=== PATIENT | male | born 1950 | race Caucasian/White ===

== ENCOUNTER 2020-11-21 16:53 | Emergency (ER) | payer MEDICARE, SELFPAY ==
[2020-11-21] VITALS (7 sets, daily range): BP systolic 125–135; BP diastolic 63–105; PULSE 73–84; RESP 15–21; TEMP 36.7–36.8; O2SAT 91–95; BMI 34.0
--- NOTE | 2020-11-21 17:02 | CT_ITS ---
PROCEDURE INFORMATION: Exam: CTA Chest With Contrast Exam date and time: 11/21/2020 5:02 PM Age: 70 years old Clinical indication: Injury or trauma; Additional info: Flipped mower TECHNIQUE: Imaging protocol: Computed tomographic angiography of the chest with contrast. 3D rendering (Not supervised by radiologist): MIP and/or 3D reconstructed images were created by the technologist. Radiation optimization: All CT scans at this facility use at least one of these dose optimization techniques: automated exposure control; mA and/or kV adjustment per patient size (includes targeted exams where dose is matched to clinical indication); or iterative reconstruction. Contrast material: ISOVUE; Contrast volume: 120 ml; Contrast route: INTRAVENOUS (IV); COMPARISON: CR XR CHEST PORTABLE 11/21/2020 5:09 PM FINDINGS: Pulmonary arteries: The pulmonary arteries are normal in caliber. No pulmonary emboli to the segmental level. Aorta: No thoracic aortic aneurysm. No evidence of aortic dissection. Lungs: No focal consolidation. There is a pulmonary nodule in the right middle lobe that measures 8 mm in average diameter. Linear opacities scattered throughout both lungs likely represent subsegmental atelectasis and/or scarring. There is a calcified granuloma in the left lower lobe. Pleural spaces: No pneumothorax. There is a trace left pleural effusion. No right pleural effusion. Heart: No cardiomegaly. No pericardial effusion. Lymph nodes: No mediastinal or hilar lymphadenopathy. Calcified left hilar lymph node. Bones/joints: Note is made acute fractures of the visualized ribs: Nondisplaced fractures of the posterior right 2nd and 6th ribs; nondisplaced fractures of the anterior right 6th through 8th ribs. There are displaced fractures of the posterior left 8th, 9th and 11th ribs and a nondisplaced fracture of the medial left 12th rib. Note is made of a vertical fracture through a right lateral osteophyte of the T11 vertebral body. The T12 vertebral body is not included on reformatted images however irregularity of the superior endplate of the T12 vertebral body on axial images suggests a compression fracture of the superior endplate. Partially imaged fracture of the right transverse process of L1. There is a nondisplaced fracture of the proximal body of the sternum with adjacent soft tissue swelling as on series 2, image 99. Soft tissues: Mild soft tissue swelling posterior to sternal fracture. IMPRESSION: 1. No evidence of pulmonary embolism or aortic dissection. 2. Acute fractures of bilateral ribs: Nondisplaced fractures of the posterior right 2nd and 6th ribs; nondisplaced fractures of the anterior right 6th through 8th ribs; displaced fractures of the posterior left 8th, 9th and 11th ribs and a nondisplaced fracture of the medial left 12th rib. 3. Compression fracture of the superior endplate of T12, suboptimally evaluated on this exam; see CT of the thoracic spine. 4. Vertical fracture through a right lateral osteophyte of the T11 vertebral body. 5. Nondisplaced fracture of the body of the sternum. 6. Trace left pleural effusion. 7. 8 mm pulmonary nodule in the right middle lobe. For patients at low risk (minimal or absent history of smoking and of other known risk factors), recommend CT Chest at 6-12 months, then consider CT Chest at 18-24 months. For patients at high risk (history of smoking or of other known risk factors), recommend CT Chest at 6-12 months, then CT Chest at 18-24 months. (Reference: Rajesh) REFERENCES: Rajesh Cook et al. Guidelines for Management of Incidental Pulmonary Nodules Detected on CT Images: From the [employer]
--- NOTE | 2020-11-21 17:02 | CT_ITS ---
PROCEDURE INFORMATION: Exam: CT Abdomen And Pelvis With Contrast Exam date and time: 11/21/2020 5:02 PM Age: 70 years old Clinical indication: Injury or trauma; Additional info: Flipped mower TECHNIQUE: Imaging protocol: Computed tomography of the abdomen and pelvis with contrast. Radiation optimization: All CT scans at this facility use at least one of these dose optimization techniques: automated exposure control; mA and/or kV adjustment per patient size (includes targeted exams where dose is matched to clinical indication); or iterative reconstruction. Contrast material: ISOVUE; Contrast volume: 70 ml; Contrast route: IV; COMPARISON: CR XR PELVIS 1-2V 11/21/2020 5:09 PM FINDINGS: Limitations: The entirety of the inferior pubic rami have not been imaged. Liver: No evidence of focal liver lesion on this single phase exam. Gallbladder and bile ducts: No intra- or extrahepatic biliary ductal dilation. No radiopaque gallstones. Pancreas: No evidence of focal lesion or ductal dilatation. Spleen: No splenomegaly. Splenic densities likely represent calcified granulomas. Adrenal glands: No adrenal nodule. Kidneys and ureters: No renal calculi. Renal vascular calcifications are present in the region of the left renal hilum. Parapelvic cysts versus left hydronephrosis. Right hydronephrosis. There is a 1.1 cm cyst in the upper pole of the left kidney as well as additional subcentimeter hypodense lesions which are too small to accurately characterize. Stomach and bowel: No distention or wall thickening. Appendix: The appendix is normal. Intraperitoneal space: No free air or fluid. No evidence of focal fluid collection. Vasculature: Note is made of focal ectasia of the distal abdominal aorta which measures 2.2 cm in diameter. Lymph nodes: No lymphadenopathy. Urinary bladder: Unremarkable as visualized. Reproductive: The prostate gland is partially imaged in suboptimally evaluated. Bones/joints: Read demonstrated compression fractures of T12 and L2 and of an osteophyte of the right aspect of T11. Redemonstrated inferior thoracic rib fractures as well as transverse process fractures. No new fractures identified however the entirety of the inferior pubic rami have not been imaged. Soft tissues: Unremarkable. IMPRESSION: 1. Redemonstrated rib fractures and compression fractures of T12 and L2 and of an osteophyte of the right aspect of T11 as well as transverse process fractures of the lumbar spine. Please see the report of the lumbar spine and chest CT for further details. No new fractures are identified however the entirety of the inferior pubic rami have not been imaged. 2. Parapelvic cysts versus left hydronephrosis. These entities can be differentiated with excretory phase imaging as clinically indicated. COMMENTS: Consistent with the [employer]'s Incidental Findings Committee white paper (J Am Diony Radiol 2018): Any incidental renal lesion less than 1 cm or classified as too small to characterize, or any incidental cystic renal lesion characterized as simple-appearing, is likely benign. No follow-up imaging is recommended for these lesions per consensus recommendations based on imaging criteria.
--- NOTE | 2020-11-21 17:02 | CT_ITS ---
PROCEDURE INFORMATION: Exam: CT Maxillofacial Without Contrast Exam date and time: 11/21/2020 5:02 PM Age: 70 years old Clinical indication: Injury or trauma; Additional info: Flipped mower TECHNIQUE: Imaging protocol: Computed tomography images of the face without contrast. Radiation optimization: All CT scans at this facility use at least one of these dose optimization techniques: automated exposure control; mA and/or kV adjustment per patient size (includes targeted exams where dose is matched to clinical indication); or iterative reconstruction. COMPARISON: CT HEAD/BRAIN WO CON 11/21/2020 6:03 PM FINDINGS: Orbital cavity: Intra and extraconal fat are clean. Globes are normal. The left inferior rectus appears to remain in good position, but clinical correlation for entrapment is recommended. Bones/joints: There is a left comminuted orbital floor fracture with up to 10 mm of depression. There may be a hairline fracture in the lateral wall of the left maxillary sinus. No other fractures are identified. Paranasal sinuses: An air-fluid level in left maxillary sinus is present compatible with blood products. Soft tissues: Mild preseptal periorbital edema and mild pre maxillary edema compatible with soft tissue trauma. IMPRESSION: Left orbital floor fracture with about 10 mm of inferior depression
--- NOTE | 2020-11-21 17:02 | CT_ITS ---
PROCEDURE INFORMATION: Exam: CT Head Without Contrast Exam date and time: 11/21/2020 5:02 PM Age: 70 years old Clinical indication: Injury or trauma; Additional info: Flipped mower TECHNIQUE: Imaging protocol: Computed tomography of the head without contrast. Radiation optimization: All CT scans at this facility use at least one of these dose optimization techniques: automated exposure control; mA and/or kV adjustment per patient size (includes targeted exams where dose is matched to clinical indication); or iterative reconstruction. COMPARISON: [facility] CT HEAD W/O CONTRAST 01/11/2017 11:18 AM FINDINGS: Brain: Normal. No hemorrhage. Unremarkable white matter. No mass effect. Cerebral ventricles: No ventriculomegaly. Paranasal sinuses: Please see concurrent CT face for findings related to facial fractures. The Mastoid air cells: Visualized mastoid air cells are well aerated. Bones/joints: Please see concurrent CT face for findings related to facial fractures. Soft tissues: Unremarkable. Other findings: No reconstructions. IMPRESSION: No acute intracranial pathology
--- NOTE | 2020-11-21 17:02 | CT_ITS ---
PROCEDURE INFORMATION: Exam: CT Cervical Spine Without Contrast Exam date and time: 11/21/2020 5:02 PM Age: 70 years old Clinical indication: Injury or trauma; Additional info: Flipped mower TECHNIQUE: Imaging protocol: Computed tomography images of the cervical spine without contrast. Radiation optimization: All CT scans at this facility use at least one of these dose optimization techniques: automated exposure control; mA and/or kV adjustment per patient size (includes targeted exams where dose is matched to clinical indication); or iterative reconstruction. COMPARISON: CT HEAD/BRAIN WO CON 11/21/2020 6:03 PM FINDINGS: Bones/joints: No acute fracture. Normal alignment. Discs/Spinal canal/Neural foramina: Mild degenerative changes. No severe spinal canal stenosis. No significant neural foraminal narrowing. Lungs: Lung apices are normal. Soft tissues: Please see concurrent CT face for facial fracture findings. IMPRESSION: No evidence of osseous spinal injury
--- NOTE | 2020-11-21 17:07 | XR_ITS ---
PROCEDURE INFORMATION: Exam: XR Chest Exam date and time: 11/21/2020 5:07 PM Age: 70 years old Clinical indication: Injury or trauma; Other: Mower accident; Blunt trauma (contusions or hematomas); Additional info: Flipped mower TECHNIQUE: Imaging protocol: XR of the chest. Views: 1 view. COMPARISON: CR CXR1 CHEST-PORTABLE 01/11/2017 11:31 AM FINDINGS: Lungs: Some hypoventilatory exam. Pleural spaces: Unremarkable. No pleural effusion. No pneumothorax. Heart/Mediastinum: Unremarkable. No cardiomegaly. Bones/joints: Unremarkable. IMPRESSION: Chest radiograph reveals no acute trauma. For persistent clinical concern, CT is offered.
--- NOTE | 2020-11-21 17:08 | CT_ITS ---
PROCEDURE INFORMATION: Exam: CT Lumbar Spine Without Contrast Exam date and time: 11/21/2020 5:08 PM Age: 70 years old Clinical indication: Injury or trauma; Additional info: Flipped mower TECHNIQUE: Imaging protocol: Computed tomography images of the lumbar spine without contrast. Radiation optimization: All CT scans at this facility use at least one of these dose optimization techniques: automated exposure control; mA and/or kV adjustment per patient size (includes targeted exams where dose is matched to clinical indication); or iterative reconstruction. COMPARISON: CT THORACIC SPINE WO CON 11/21/2020 6:11 PM FINDINGS: Vertebrae: There are acute compression fractures of the superior endplates of T12 and L2 with less than 10% loss of height. There is sclerosis and lucency of the left aspect of the superior endplate of L3 which likely related to endplate degenerative changes. Partially imaged displaced fracture of the left 11th rib. There is a nondisplaced fracture of the medial left 12th rib. There are moderately displaced fractures of the right transverse processes of L1 and L2 and a questionable nondisplaced fracture of the tip of the right transverse process of L3. There is a moderately displaced fracture of the left transverse process of L2. Discs/Spinal canal/Neural foramina: There are multilevel degenerative changes of the lumbar spine characterized by intervertebral disc space narrowing, endplate degenerative changes and facet arthropathy. There is moderate to severe spinal canal narrowing at L3-L4 secondary to a disc bulge and ligamentum flavum hypertrophy. There is severe spinal canal and moderate bilateral foraminal narrowing at L4-L5 secondary to a disc bulge however this level is slightly suboptimally evaluated secondary to streak artifact. Intraperitoneal space: Please see abdomen/pelvis report regarding intra-abdominal findings. Soft tissues: Unremarkable. IMPRESSION: 1. Acute compression fractures of the superior endplates of T12 and L2 with less than 10% loss of height. 2. Moderately displaced fractures of the right transverse processes of L1 and L2 and questionable nondisplaced fracture of the tip of the right transverse process of L3. Moderately displaced fracture of the left transverse process of L2. 3. Partially imaged displaced fracture of the left 11th rib and nondisplaced fracture of the medial left 12th rib.
--- NOTE | 2020-11-21 17:08 | CT_ITS ---
PROCEDURE INFORMATION: Exam: CT Thoracic Spine Without Contrast Exam date and time: 11/21/2020 5:08 PM Age: 70 years old Clinical indication: Injury or trauma; Additional info: Flipped mower TECHNIQUE: Imaging protocol: Computed tomography images of the thoracic spine without contrast. Radiation optimization: All CT scans at this facility use at least one of these dose optimization techniques: automated exposure control; mA and/or kV adjustment per patient size (includes targeted exams where dose is matched to clinical indication); or iterative reconstruction. COMPARISON: CT CERVICAL SPINE WO CON 11/21/2020 6:06 PM FINDINGS: Vertebrae: There is an acute compression fracture of the superior endplate of T12 with less than 10% loss of height. There is also a the vertical fracture through an osteophyte of the right aspect of the T11 vertebral body best seen on series 601, image 34. Note is again made of nondisplaced fractures of the posterior right 2nd and 6th ribs as well as displaced fractures of the posterior 8th, 9th, and 11th ribs as well as a nondisplaced fracture of the medial 12 rib. There is a partially imaged fracture of the right transverse process of L1. Discs/Spinal canal/Neural foramina: No significant disc protrusion. No severe spinal canal stenosis. No significant neural foraminal narrowing. Soft tissues: Unremarkable. IMPRESSION: 1. Acute compression fracture of the superior endplate of T12 with less than 10% loss of height. 2. Vertical fracture through an osteophyte of the right aspect of the T11 vertebral body. 3. Note again made of nondisplaced fractures of the posterior right 2nd and 6th ribs as well as displaced fractures of the posterior 8th, 9th and 11th rib as well as a nondisplaced fracture of the medial 12th rib.
--- NOTE | 2020-11-21 17:08 | XR_ITS ---
PROCEDURE INFORMATION: Exam: XR Pelvis Exam date and time: 11/21/2020 5:08 PM Age: 70 years old Clinical indication: Injury or trauma; Other: Mower accident; Blunt trauma (contusions or hematomas); Bilateral; Hip; Additional info: Flipped mower TECHNIQUE: Imaging protocol: XR pelvis. Views: 1 or 2 view. COMPARISON: No relevant prior studies available. FINDINGS: Bones/joints: Unremarkable. No acute fracture. Soft tissues: Unremarkable. IMPRESSION: No acute findings. For persistent clinical concern, CT is offered.
--- NOTE | 2020-11-21 17:10 | [facility].EDGENADL ---
ED Disposition Clinical Impression: Multiple transverse process fractures Orbit fracture Qualifiers: Encounter type: initial encounter Fracture type: closed Qualified Code(s): S02.85XA - Fracture of orbit, unspecified, initial encounter for closed fracture Sternal fracture Qualifiers: Encounter type: initial encounter Sternal location: body of sternum Fracture type: closed Qualified Code(s): S22.22XA - Fracture of body of sternum, initial encounter for closed fracture Multiple rib fractures Qualifiers: Encounter type: initial encounter Fracture type: closed Laterality: bilateral Qualified Code(s): S22.43XA - Multiple fractures of ribs, bilateral, initial encounter for closed fracture Thoracic compression fracture Qualifiers: Encounter type: initial encounter Thoracic vertebra fracture level: T12 Qualified Code(s): S22.080A - Wedge compression fracture of T11-T12 vertebra, initial encounter for closed fracture Lumbar compression fracture Qualifiers: Encounter type: initial encounter Lumbar vertebra fracture level: L2 Qualified Code(s): S32.020A - Wedge compression fracture of second lumbar vertebra, initial encounter for closed fracture Disposition: Xfer Short-Term Hosp Condition on Discharge: Serious Referrals: Provider,Referral, MD [Primary Care Provider] - - Critical Care Critical Care Time: No Attestation: On , the high probability of a clinically significant, sudden or life threatening deterioration of the following system(s) required my full and direct attention, intervention and personal management. The time I documented below is in addition to time spent performing reported procedures but includes the following listed in this critical care notation. Medical Decision Making - Edward Inquiry Pt receiving controlled substance: Yes Edward was queried for this patient: No Risks and benefits of using a controlled substance: were not discussed with pt by me Vital Signs: 11/21/20 16:53 Temperature 98.3 F Temperature Source Oral Pulse Rate [Right Radial] 74 Respiratory Rate 18 Blood Pressure [Right Arm] 125/105 H Blood Pressure Mean [Right Arm] 111 Blood Pressure Source [Right Arm] Automatic Cuff Blood Pressure Position [Right Arm] Sitting 02 Sat by Pulse Oximetry 94 L Oxygen Delivery Method Nasal Cannula Oxygen Flow Rate (LPM) 2 - Lab Data Lab Results 11/21/20 17:10: WBC 12.1 H, RBC 4.88, Hgb 14.3, Hct 44.7, MCV 91.6, MCH 29.2, MCHC 31.9, RDW 14.3, Plt Count 273, MPV 8.4, Neut % (Auto) 79.7, Lymph % (Auto) 15.9, Gila % (Auto) 2.2, Eos % (Auto) 1.8, Baso % (Auto) 0.4, Neut # (Auto) 9.6 H, Lymph # (Auto) 1.9, Gila # (Auto) 0.3, Eos # (Auto) 0.2, Baso # (Auto) 0.1 11/21/20 17:10: Sodium 141, Potassium 4.6, Chloride 106, Carbon Dioxide 24, Anion Gap 15.6 H, BUN 31 H, Creatinine 1.30 H, Estimated Creat Clear 76, Estimated GFR 54 L, Est GFR ( Amer) 66, Glucose 246 H, Calcium 8.8, Total Bilirubin 0.6, AST 40, ALT 25, Alkaline Phosphatase 113, Total Protein 7.6, Albumin 4.2, Globulin 3.4 H, Albumin/Globulin Ratio 1.2 Result diagrams: 11/21/20 17:10 11/21/20 17:10 Orders (Tests/Meds): ED MEDICATIONS Discontinued Medications Generic Name Dose Route Start Last Admin Trade Name Freq PRN Reason Stop Dose Admin Hydromorphone HCl 1 mg 11/21/20 20:55 Hydromorphone 2mg/Ml Syringe IV 11/21/20 20:56 ONCE ONE Sodium Chloride 1,000 mls @ 999 mls/hr 11/21/20 17:04 11/21/20 17:00 Sod Chlor 0.9% 1000ml Bag IV 11/21/20 18:04 999 mls/hr .Q1H1M ONE Administration Iopamidol 100 ml 11/21/20 18:08 11/21/20 18:10 Iopamidol-370 (76%);100ml Bottle IV 11/21/20 18:09 100 ml ONCE ONE Administration Morphine Sulfate 4 mg 11/21/20 17:01 11/21/20 17:15 Morphine 4mg/Ml Syringe IV 11/21/20 17:02 4 mg ONCE ONE Administration Ondansetron HCl 4 mg 11/21/20 17:01 11/21/20 17:05 Ondansetron 4mg/2ml Vial IV 11/21/20 17:02 4 mg ONCE ONE Administration Sodium Chlor
[2020-11-21 17:34] LABS: Chloride 106 mmol/L (98-107); Potassium 4.6 mmoL/L (3.5-5.1); Sodium 141 mmol/L (136-145)
[2020-11-21 17:36] LABS: Blood Urea Nitrogen 31 mg/dl (9-20); Creatinine Clearance Estimated 76 mL/min (50-200); Estimated Glomerular Filt Rate 54 ml/min (>60); GFR (African American) 66 ML/MIN (>60)
[2020-11-21 17:37] LABS: Alanine Aminotransferase 25 U/L (12-78); Albumin Level 4.2 g/dl (3.5-5.0); Albumin/Globulin Ratio 1.2 (1.1-1.8); Alkaline Phosphatase 113 U/L (38-126); Anion Gap 15.6 mEq/L (5-15); Aspartate Amino Transferase 40 U/L (17-59); Basophils # 0.1 K/mm3 (0-0.2); Basophils % 0.4 % (0.1-2.0); Bilirubin,Total 0.6 mg/dl (0.2-1.3); Calcium 8.8 mg/dl (8.4-10.2); Carbon Dioxide 24 mmol/L (22.0-30.0); Eosinophils # 0.2 K/mm3 (0.0-0.4); Eosinophils % 1.8 % (0.1-12.0); Globulin 3.4 g/dL (1.3-3.2); Glucose 246 mg/dl (74-100); Hematocrit 44.7 % (42.0-52.0); Hemoglobin 14.3 g/dL (14.1-18.0); Lymphocytes # 1.9 K/mm3 (0.7-4.5); Lymphocytes % 15.9 % (10-50); Mean Corpuscular HGB Conc 31.9 g/dL (31.8-35.4); Mean Corpuscular Hemoglobin 29.2 pg (27.0-31.2); Mean Corpuscular Volume 91.6 fl (80-94); Mean Platelet Volume 8.4 fl (7.4-10.4); Monocytes # 0.3 K/mm3 (0.1-1.0); Monocytes % 2.2 % (1.7-9.3); Neutrophils # 9.6 K/mm3 (1.8-7.8); Neutrophils % 79.7 % (37.0-80.0); Platelet Count 273 K/mm3 (142-424); Red Blood Count 4.88 M/mm3 (4.60-6.20); Red Cell Distribution Width 14.3 % (11.5-17.5); Total Protein,Serum 7.6 g/dl (6.3-8.2); White Blood Count 12.1 K/mm3 (4.8-10.8)
--- NOTE | 2020-11-21 20:32 | ECG_ITS ---
APPROVED REPORT Exam: Resting ECG HR:75 bpm ECG Measurements Heart Rate 75 AXES ME 172 P 67 QRSd 130 QRS -54 QT 402 T 36 QTc 448 Conclusion Normal sinus rhythm Left axis deviation Right bundle branch block Inferior infarct, age undetermined Abnormal ECG Electronically signed by : Wade Ulloa MD 11/23/2020 12:09:38
== END 2020-11-21 21:26 | disposition short-term general hospital (02) ==
PROVIDERS: Emergency Provider Emergency Medicine
DX: S02.85XA Fracture of orbit, unspecified, initial encounter for closed fracture (principal); S22.22XA Fracture of body of sternum, initial encounter for closed fracture; S22.43XA Multiple fractures of ribs, bilateral, initial encounter for closed fracture; S22.080A Wedge compression fracture of T11-T12 vertebra, initial encounter for closed fracture; S32.020A Wedge compression fracture of second lumbar vertebra, initial encounter for closed fracture; W30.89XA Contact with other specified agricultural machinery, initial encounter; Y92.017 Garden or yard in single-family (private) house as the place of occurrence of the external cause
CPT/HCPCS: 70450; 70486; 71045; 71275; 72125; 72128; 72131; 72170; 74177; 80053; 85025; 93005; 96365; 96367; 96375; 99284; J2405; Q9967

== ENCOUNTER 2024-02-05 21:43 | Emergency (ER) | payer MEDICARE, SELFPAY ==
[2024-02-05 21:44] VITALS: BP 132/62; PULSE 67; RESP 18; TEMP 36.7; O2SAT 97; BMI 32.5
[2024-02-05 22:45] LABS: Influenza A, PCR Not Detected (NotDetected); Influenza B, PCR Not Detected (NotDetected)
--- NOTE | 2024-02-05 23:11 | PC.NURSE ---
Called Rad about chest xray.
[2024-02-05 23:16] LABS: Coronavirus 19, PCR Detected (NotDetected)
--- NOTE | 2024-02-05 23:34 | [facility].EDGENADL ---
Discharge Plan Disposition Patient Disposition: Home, Self-Care Prescriptions Prescriptions: New levofloxacin 750 mg tablet 750 mg PO DAILY 6 Days Qty: 6 0RF No Action pantoprazole 40 MG tablet,delayed release (DR/EC) 40 mg PO DAILY metformin 1,000 MG tablet 1,000 mg PO BID gabapentin 300 MG capsule 300 mg PO BID losartan 100 MG tablet 100 mg PO DAILYDM rosuvastatin 20 MG tablet 20 mg PO DAILY levothyroxine 50 MCG capsule 50 mcg PO DAILY vortioxetine 10 MG tablet 10 mg PO DAILY empagliflozin 25 MG tablet 25 mg PO DAILY semaglutide 14 MG tablet 14 mg PO DAILY Referrals Follow up/Referrals: Ton Michael MD [Primary Care Provider] - See instructions Activity Restrictions/Add. Instructions Additional Instructions/Restrictions: Please take antibiotics as prescribed for pneumonia. Please follow-up with your primary care provider. Please return to the emergency department if you develop any new or worsening symptoms or become concerned for your health. Clinical Impressions Clinical Impression: Pneumonia Qualifiers: Laterality: left Lung location: lower lobe of lung Print Language Print Language: Romanian Discharge ED Provider: Munir Hernández General Adult HPI General Chief complaint: Upper Respiratory Infection Stated complaint: beto, SOA, cough Time Seen by Provider: 02/05/24 23:33 Mode of Arrival: Ambulatory Source of Information: Patient Limitations: No Limitations Description of Symptoms (Recalled from ER Triage Doc. by RN): pt to the ED with cough, congestion and drainage. pt denies any fever, chest pain or SOB. History of Present Illness HPI narrative: 73-year-old male with history of diabetes presents for cough, congestion. He reports that he has had nasal congestion and intermittently productive cough for the last couple of weeks. Denies fever at home. Reports that he feels a little bit rundown but is not having any trouble breathing. Denies any history of lung problems. Reports normal p.o. intake. Related Data Home Medications ?Medication ?Instructions ?Recorded ?Confirmed empagliflozin 25 mg tablet 25 mg PO DAILY daily 11/21/20 11/21/20 gabapentin 300 mg capsule 300 mg PO BID peripheal neuropathy 11/21/20 11/21/20 levothyroxine 50 mcg capsule 50 mcg PO DAILY thyroid 11/21/20 11/21/20 losartan 100 mg tablet 100 mg PO DAILYDM htn 11/21/20 11/21/20 metformin 1,000 mg tablet 1,000 mg PO BID Diabetes 11/21/20 11/21/20 pantoprazole 40 mg tablet,delayed 40 mg PO DAILY GERD 11/21/20 11/21/20 release rosuvastatin 20 mg tablet 20 mg PO DAILY Cholesterol 11/21/20 11/21/20 semaglutide 14 mg tablet 14 mg PO DAILY Depression 11/21/20 11/21/20 vortioxetine 10 mg tablet 10 mg PO DAILY Depression 11/21/20 11/21/20 Previous Rx's ?Medication ?Instructions ?Recorded levofloxacin 750 mg tablet 750 mg PO DAILY 6 days #6 tabs 02/06/24 Allergies Allergy/AdvReac Type Severity Reaction Status Date / Time Penicillins [PENICILLINS] Allergy Unknown Verified 11/21/20 17:15 [facility] Disclaimer: The information contained in this section may have been updated after the patient was seen, as this information can be updated by other users. Social History Smoking Status: Never smoker alcohol intake: never current occupational status: retired Travel in the last 8 weeks: None Other Medical History Have you received the Flu Vaccine for this season: No Have you received the Pneumonia Vaccine: No ROS Obtained: Yes All systems reviewed & no additional complaints except as documented Physical Exam General General appearance: alert and in no apparent distress Head Head exam: atraumatic and normocephalic Eye Eye exam: Present normal appearance, PERRL and EOMI ENT ENT exam: Present normal oropharynx and normal external ear exam Neck Neck exam: Present normal inspection and full ROM Chest Chest inspection: Present normal inspection and symmetric chest wall rise; Absent tenderness Respiratory Respiratory exam: Present other (Rhonchi worse on the right upper); Absent respiratory distress Cardiovascular Cardiovascular exam: Present regular rate and normal rhythm Abdominal Exam Abdominal exam: Present soft; Absent distention, tenderness or guarding Extremities Exam Extremities exam: Present normal inspection; Absent edema or joint swelling Back Exam Back exam: Present normal inspection; Absent tenderness Neurological Exam Neurological exam: Present alert and oriented X3; Absent motor sensory deficit Psychiatric Psychiatric exam: Present normal affect and normal mood Skin Skin exam: Present warm, dry and normal color Lymphatic Lymphatic Findings: no adenopathy Medical Decision Making Medical Records Medical records reviewed: Yes I reviewed the patient's medical records. Screening: Per USPSTF and CDC recommendations, given the prevalence of disease in our region, it is our hospital?s policy to screen for HIV and viral Hepatitis for all patients aged 18 and over and those with ongoing risk factors. Edward Inquiry Pt receiving controlled substance: No Edward was queried for this patient: No Vital Signs: 02/05/24 21:44 02/06/24 00:38 Temperature 98.1 F 97.9 F Temperature Source Oral Pulse Rate 67 Pulse Rate [Left Radial] 67 Respiratory Rate 18 18 Blood Pressure 132/62 Blood Pressure [Right Arm] 132/62 Blood Pressure Mean [Right Arm] 85 Blood Pressure Source [Right Arm] Manual Cuff/ Auscultation Blood Pressure Position [Right Arm] Sitting 02 Sat by Pulse Oximetry 97 Oxygen Delivery Method Room Air Room Air Lab Data Lab results reviewed: Yes I reviewed the patient's lab results. Lab Results 02/05/24 10:40: SARS-CoV-2 (PCR) Detected A, Influenza A Untype (PCR) Not detected, Influenza Type B (PCR) Not detected Orders (Tests/Meds): ED MEDICATIONS Discontinued Medications Generic Name Dose Route Start Last Admin Trade Name Freq PRN Reason Stop Dose Admin Levofloxacin 750 mg 02/06/24 00:29 02/06/24 00:37 Levofloxacin 750 Mg Tablet PO 02/06/24 00:30 750 mg ONCE ONE Administration ORDERS Category Date Time Status XR chest 2V Stat Exams 02/06/24 00:17 Completed Rapid PCR Covid and Flu A/B Stat Lab 02/05/24 10:40 Completed Medical Decision Narrative: 73-year-old male with history of diabetes presents for persistent cough and nasal congestion. History was obtained via interactive discussion with patient, chart review. On arrival, patient is [afebrile, hemodynamically stable, satting appropriately, alert, oriented x4, GCS 15], moving all extremities spontaneously. Full physical exam performed and significant for rhonchi worse in the right upper lung field. Differential includes but is not limited to COVID, flu, viral/bacterial pneumonia. Workup initiated including COVID flu swab, chest x-ray two-view. On re-evaluation, patient [remains afebrile, HD stable.] Laboratory workup independently interpreted by me and significant for positive COVID swab. Imaging independently interpreted by me and significant for finding concerning for left lower lobe pneumonia.. See radiology read for full review of final results. Blood work and admission for community-acquired pneumonia was considered, but deemed unnecessary due to history, vital signs, patient generally well-appearing.. Given patient history, exam and workup, patient's presentation most likely represents COVID with associated pneumonia. We will initiate patient on Levaquin for treatment of community acquired pneumonia given penicillin allergy. Interactive discussion was had with patient regarding his presentation and workup. He was given strict return precautions. Procedures Risk/Benefits of Procedure(s) Were Explained: Yes Critical Care Critical Care Time Critical Care Time: No
--- NOTE | 2024-02-06 00:17 | XR_ITS ---
PROCEDURE INFORMATION: Exam: XR Chest Exam date and time: 02/06/2024 12:08 AM Age: 73 years old Clinical indication: Cough TECHNIQUE: Imaging protocol: Radiologic exam of the chest. Views: 2 views. COMPARISON: CT ANGIO CHEST 11/21/2020 6:21 PM FINDINGS: Lungs: Peribronchial interstitial infiltrates are present bilaterally. No airspace disease. Pleural spaces: No pleural effusions. Heart/Mediastinum: Unremarkable. No cardiomegaly. Bones/joints: Osseous structures are appropriate for age. IMPRESSION: Airways disease or infectious bronchitis versus chronic lung disease. No acute airspace pneumonia.
[2024-02-06] MEDS: levoFLOXacin 750 MG TABLET PO (00:37)
[2024-02-06 00:38] VITALS: BP 132/62; PULSE 67; RESP 18; TEMP 36.6; O2SAT 97
== END 2024-02-06 00:42 | disposition home or self-care (01) ==
PROVIDERS: Emergency Medicine; Emergency Provider Emergency Medicine; PCP Social Worker
DX: J18.9 Pneumonia, unspecified organism (principal)
CPT/HCPCS: 71046; 87636; 99284